=== PATIENT | male | born 1955 | race Caucasian/White ===

== ENCOUNTER 2020-09-06 11:22 | Emergency (ER) | payer OTHER, SELFPAY ==
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
[2020-09-06 11:20] VITALS: BP 103/67; PULSE 62; RESP 20; TEMP 36.5; O2SAT 100
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
[2020-09-06] MEDS: MORPHINE SULFATE (*CRX) 4 MG/ML INJ IV PUSH ×2 (13:23→15:17)
[2020-09-06 13:24] LABS: Basophils Percent Auto 0.2 % (0.2-1.2); Eosinophils Absolute Auto 0.1 K/mm3 (0-0.3); Eosinophils Percent Auto 0.3 % (0-4.4); Hematocrit 43.3 % (42.0-52.0); Hemoglobin 14.6 g/dL (14.0-18.0); Immature Granulocyte Absolute 0.09 K/mm3 (0.00-0.031); Immature Granulocyte Percent A 0.6 % (0-0.5); Lymphocytes Absolute Auto 1.18 K/mm3 (0.9-3.2); Lymphocytes Percent Auto 8.2 % (18.3-44.2); Mean Corpuscular HGB Conc 33.7 g/dl (32-36); Mean Corpuscular Hemoglobin 31.1 pg (26-34); Mean Corpuscular Volume 92.3 fl (80-100); Mean Platelet Volume 10.5 fl (7.4-10.4); Monocytes Absolute Auto 1.1 K/mm3 (0.1-0.6); Monocytes Percent Auto 7.8 % (2.6-8.5); Neutrophils Percent Auto 82.9 % (45.5-73.1); Platelet Count Result 172 k/mm3 (150-375); Red Blood Count 4.69 M/mm3 (4.6-6.20); Red Cell Distribution Width 11.9 % (11.5-14.5); White Blood Count 14.4 K/mm3 (4.5-10.0)
[2020-09-06 13:29] VITALS: BP 111/69; PULSE 62; RESP 20; O2SAT 98
[2020-09-06 13:34] LABS: Alanine Aminotransferase 24 U/L (4-50); Albumin Level 4.1 g/dL (3.5-5.1); Alkaline Phosphatase 52 U/L (38-126); Anion Gap 8 mmol/L (8-16); Aspartate Amino Transferase 32 U/L (17-59); Bilirubin,Total 0.9 mg/dL (0.2-1.3); Blood Urea Nitrogen 15 mg/dL (9-20); Calcium 8.5 mg/dL (8.4-10.2); Carbon Dioxide 25 mmol/L (22-30); Chloride 105 mmol/L (98-107); Estimated CRCL calculation 76 ml/min; Estimated Glomerular Filt Rate > 60; Glucose 103 mg/dL (75-110); Potassium 4.4 mmol/L (3.4-5.0); Sodium 138 mmol/L (137-145)
[2020-09-06 14:56] VITALS: BP 137/70; PULSE 80; RESP 20; O2SAT 97
--- NOTE | 2020-09-06 15:21 | PC.NURSE ---
made contact with [facility] to transfer pt to [facility]. med [place] stated the are in route.
[2020-09-06 15:30] VITALS: BP 146/73; PULSE 86; RESP 20; O2SAT 98
[2020-09-06 16:29] VITALS: BP 137/71; PULSE 78; RESP 20; O2SAT 95
--- NOTE | 2020-09-06 16:46 | PC.NURSE ---
med [facility] has arrived and is aware that pt is going to [facility]
[2020-09-06 16:49] VITALS: BP 126/72; PULSE 72; RESP 20; O2SAT 98
== END 2020-09-06 16:53 | disposition short-term general hospital (02) ==
LOC: ANHED 12:24
PROVIDERS: Emergency Provider Emergency Medicine; PCP Internal Medicine
DX: S22.42XA Multiple fractures of ribs, left side, initial encounter for closed fracture (principal); S42.152A Displaced fracture of neck of scapula, left shoulder, initial encounter for closed fracture; S42.035A Nondisplaced fracture of lateral end of left clavicle, initial encounter for closed fracture; M47.812 Spondylosis without myelopathy or radiculopathy, cervical region; R90.82 White matter disease, unspecified; V18.4XXA Pedal cycle driver injured in noncollision transport accident in traffic accident, initial encounter
CPT/HCPCS: 36415; 70450; 71046; 71260; 72125; 73030; 74177; 80053; 85025; 96374; 96376; 99285; A4565; J2270; Q9967